=== PATIENT | male | born 1990 | race Asian ===

== ENCOUNTER 2016-09-24 16:22 | Emergency (ER) | payer BC ==
[~2016-09-24] VITALS: Ht 175.3 cm; Wt 216.8 kg
[2016-09-24 16:30] VITALS: BP 114/58
--- NOTE | 2016-09-24 20:50 | ED.ADGEN ---
Past Medical History Past Medical History: No Pertinent History, Diabetes-Type II, Hypertension Past Surgical History: No Surgical History Alcohol Use: None Drug Use: None Adult General Chief Complaint Chief Complaint: DIZZY/LIGHT HEADED HPI HPI Patient is a 26 year old with history of hypertension, adult-onset diabetes and high BMI presents with intermittent dizziness 10 days. Patient reports feeling occasional balance with standing the past 10 days. He denies headache, blurred vision, tinnitus, neck pain, stiffness, extremity tingling or weakness. Toes are described as mild. Patient is currently asymptomatic in the ED. Patient is currently noncompliant with blood pressure diabetic medications. He states he feels as though he doesn't need them and that he is in the process of losing weight. Reports mild nasal congestion rhinorrhea. No cough fever chills, nausea vomiting or sweats. No other acute symptoms or complaints. Patient has not been evaluated for these medical symptoms by his primary care physician prior to ED evaluation. Review of Systems Review of Systems ROS as per HPI. Allergies Allergies Allergies Coded Allergies Type Severity Reaction Last Updated Verified No Known Drug Allergies 09/07/14 No Physical Exam Physical Exam Constitutional: Well developed, well nourished, no acute distress, non-toxic appearance. HENT: Normocephalic, atraumatic, bilateral external ears normal, oropharynx moist, no oral exudates, nose, clear rhinorrhea with mucosa erythema. No facial tenderness to palpation. Eyes: PERRL, EOMI, no nystagmus. Neck: Normal range of motion, no tenderness. Cardiovascular:Heart rate regular rhythm. Lungs & Thorax: Bilateral breath sounds clear to auscultation. Abdomen: Bowel sounds normal, soft, obesity compromising evaluation. Skin: Warm, dry. Extremities: No tenderness. Neurologic: Alert and oriented X 3, cranial nerves II through XII grossly intact , normal motor function, normal sensory function. Psychologic: Affect normal, judgement normal, mood normal. Current Patient Data Vital Signs Vital Signs Date Time Temp Pulse Resp B/P (MAP) Pulse Ox O2 Delivery O2 Flow Rate FiO2 09/24/16 16:30 98.5 85 20 114/58 (76) 99 Room Air 98.5 Lab Values Laboratory Tests Test 09/24/16 16:57 Glucose (Fingerstick) 144 mg/dL (70-99) H EKG EKG [] Radiology/Procedures Radiology/Procedures [] Course & Med Decision Making Course & Med Decision Making Pertinent Labs and Imaging studies reviewed. (See chart for details) [Patient with benign physical exam. Vital signs stable. Sugar 144. Recommend meclizine as needed for dizziness with PCP follow-up for evaluation.] Dragon Disclaimer Dragon Disclaimer This electronic medical record was generated, in whole or in part, using a voice recognition dictation system. BRYN FLANNERY DO Sep 24, 2016 20:50
== END 2016-09-24 17:41 | disposition home or self-care (01) ==
LOC: ER 16:22
DX: R42 Dizziness and giddiness (principal); R09.81 Nasal congestion; J34.89 Other specified disorders of nose and nasal sinuses; E11.9 Type 2 diabetes mellitus without complications; I10 Essential (primary) hypertension
CPT/HCPCS: 82962; 99283

== ENCOUNTER 2016-10-24 10:19 | Emergency (ER) | payer BC ==
[~2016-10-24] VITALS: Ht 175.3 cm; Wt 213.2 kg
[2016-10-24] MEDS ORDERED: IV NORMAL SALINE 1000ML BAG 1,000 ML IV SCH (10:48)
[2016-10-24] MEDS ORDERED: 0.9 % SODIUM CHLORIDE 10 ML DISP.SYRIN. IV PRN (11:00)
[2016-10-24 11:09] LABS: BILIRUBIN,URINE NEGATIVE (NEG); GLUCOSE,URINE >=1000 mg/dL (NEG); NITRITE,URINE NEGATIVE (NEG); PROTEIN,URINE NEGATIVE (NEG-TRACE); UROBILINOGEN,URINE 0.2 mg/dL (0.2 mg/dL)
--- NOTE | 2016-10-24 11:15 | RAD ---
PA and lateral chest. History: Dizzy PA and lateral views were taken of the chest. Lungs are clear. Heart is normal in size without heart failure. There is no effusion. Impression: 1. No acute chest disease.
[2016-10-24 11:26] LABS: BASO # 0.1 x10^3/uL (0.0-0.2); BASO % 1 % (0-3); EOS % 1 % (0-3); HEMATOCRIT 40.4 % (39.0-53.0); HEMOGLOBIN 12.6 g/dL (13.0-17.5); LYMPH # 2.1 x10^3/uL (1.0-4.8); LYMPH % 15 % (24-48); MEAN CORPUSCULAR HEMOGLOBIN 20 pg (25-35); MEAN CORPUSCULAR HGB CONC 31 g/dL (31-37); MEAN CORPUSCULAR VOLUME 64 fL (79-100); MONO % 6 % (0-9); NEUT % 77 % (31-73); PLATELET COUNT 257 x10^3/uL (140-400); WHITE BLOOD COUNT 14.4 x10^3/uL (4.0-11.0)
[2016-10-24 11:31] LABS: BACTERIA,URINE 0 /HPF (0-FEW); SQUAMOUS EPITHELIAL CELL,UR FEW /LPF
--- NOTE | 2016-10-24 11:34 | PHYS DOC ---
Past Medical History Past Medical History: No Pertinent History, Diabetes-Type II, Hypertension Past Surgical History: No Surgical History Alcohol Use: None Drug Use: None Adult General Chief Complaint Chief Complaint: DIZZY/LIGHT HEADED HPI HPI This is a pleasant obese 26-year-old male with history of hypertension, hyperlipidemia, and diabetes who presents with a week long history of dizziness. He is been on multiple medications to include ; hydrochlorothiazide, amlodipine, fargixa, and jaunvia which was added to his treatment plan we can have ago. He began having symptoms about a week ago after starting these medications in an attempt to improve his glucose metabolism. Patient has had increased frequency of urination with urgency and mild dysuria without penile discharge. He's got no abdominal pain, no nausea, no vomiting, no diarrhea, no fevers, no chills, no focal neurologic deficits. He said he feels dizzy going from a sitting to standing position quickly. He knows the symptoms are coming on but there is no change in vision no blurred vision no hearing loss no tinnitus. He also has a slight throbbing tension-like headache has been intermittent for last several weeks. Is not worse of life and sudden onset not exacerbated by exercise or other movements. He denies any fevers, chills or neck stiffness. 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 Review of Systems Review of Systems Constitutional: Denies fever or chills [] Eyes: Denies change in visual acuity, redness, or eye pain [] HENT: Denies nasal congestion or sore throat [] Respiratory: Denies cough or shortness of breath [] Cardiovascular: No additional information not addressed in HPI [] GI: Denies abdominal pain, nausea, vomiting, bloody stools or diarrhea [] : Denies dysuria or hematuria [] Musculoskeletal: Denies back pain or joint pain [] Integument: Denies rash or skin lesions [] Neurologic: Denies headache, focal weakness or sensory changes patient only complains of dizziness with standing from a sitting position. Endocrine: Denies polyuria or polydipsia [] Current Medications Current Medications Current Medications Medications (Trade) Dose Ordered Sig/Gaby Start Time Stop Time Status Last Admin Dose Admin Sodium Chloride (Normal Saline Flush) 10 ml QSHIFT PRN 10/24/16 11:00 10/24/16 11:22 10 ML Allergies Allergies Allergies Coded Allergies Type Severity Reaction Last Updated Verified No Known Drug Allergies 09/07/14 No Physical Exam Physical Exam Constitutional: Well developed, well nourished, no acute distress, non-toxic appearance. Patient is morbidly obese but in no acute distress. HENT: Normocephalic, atraumatic, bilateral external ears normal, dry mucous membranes., no oral exudates, nose normal. [] Eyes: PERRLA, EOMI, conjunctiva normal, no discharge. [] Neck: Normal range of motion, no tenderness, supple, no stridor. [] Cardiovascular:Heart rate regular rhythm, no murmur [] Lungs & Thorax: Bilateral breath sounds clear to auscultation [] Abdomen: Bowel sounds normal, soft, no tenderness, no masses, no pulsatile masses. [] Skin: Warm, dry, no erythema, no rash. [] Back: No tenderness, no CVA tenderness. [] Extremities: No tenderness, no cyanosis, no clubbing, ROM intact, no edema. [] Neurologic: Alert and oriented X 3, normal motor function, normal sensory function, no focal deficits noted. [] Psychologic: Affect normal, judgement normal, mood normal. [] Current Patient Data Vital Signs Vital Signs Date Time Temp Pulse Resp B/P (MAP) Pulse Ox O2 Delivery O2 Flow Rate FiO2 10/24/16 10:55 98.3 95 18 132/60 (84) 97 Room Air 98.3 Lab Values Laboratory Tests Test 10/24/16 10:45 10/24/16 11:15 Urine Collection Type Void Urine Color Yellow Urine Clarity Clear Urine pH 6.0 Urine Specific [place] 1.025 Urine Protein Negative mg/dL (NEG-TRACE) Urine Glucose (UA) >=1000 mg/dL (NEG) Urine Ketones (Stick) Negative mg/dL (NEG) Urine Blood Small (NEG) Urine Nitrite Negative (NEG) Urine Bilirubin Negative (NEG) Urine Urobilinogen Dipstick 0.2 mg/dL (0.2 mg/dL) Urine Leukocyte Esterase Negative (NEG) Urine RBC 11-20 /HPF (0-2) Urine WBC 1-4 /HPF (0-4) Urine Squamous Epithelial Cells Few /LPF Urine Bacteria 0 /HPF (0-FEW) White Blood Count 14.4 x10^3/uL (4.0-11.0) H Red Blood Count 6.30 x10^6/uL (4.30-5.70) H Hemoglobin 12.6 g/dL (13.0-17.5) L Hematocrit 40.4 % (39.0-53.0) Mean Corpuscular Volume 64 fL (79-100) L Mean Corpuscular Hemoglobin 20 pg (25-35) L Mean Corpuscular Hemoglobin Concent 31 g/dL (31-37) Red Cell Distribution Width 15.0 % (11.5-14.5) H Platelet Count 257 x10^3/uL (140-400) Neutrophils (%) (Auto) 77 % (31-73) H Lymphocytes (%) (Auto) 15 % (24-48) L Monocytes (%) (Auto) 6 % (0-9) Eosinophils (%) (Auto) 1 % (0-3) Basophils (%) (Auto) 1 % (0-3) Neutrophils # (Auto) 11.1 x10^3uL (1.8-7.7) H Lymphocytes # (Auto) 2.1 x10^3/uL (1.0-4.8) Monocytes # (Auto) 0.9 x10^3/uL (0.0-1.1) Eosinophils # (Auto) 0.2 x10^3/uL (0.0-0.7) Basophils # (Auto) 0.1 x10^3/uL (0.0-0.2) Platelet Estimate Pending Sodium Level 141 mmol/L (136-145) Potassium Level 3.9 mmol/L (3.5-5.1) Chloride Level 102 mmol/L (98-107) Carbon Dioxide Level 31 mmol/L (21-32) Anion Gap 8 (6-14) Blood Urea Nitrogen 12 mg/dL (8-26) Creatinine 1.0 mg/dL (0.7-1.3) Estimated GFR (Cockcroft-Gault) 89.0 Glucose Level 178 mg/dL (70-99) H Calcium Level 9.2 mg/dL (8.5-10.1) Total Bilirubin 0.2 mg/dL (0.2-1.0) Direct Bilirubin 0.1 mg/dL (0.0-0.2) Aspartate Amino Transferase (AST) 20 U/L (15-37) Alanine Aminotransferase (ALT) 32 U/L (16-63) Alkaline Phosphatase 99 U/L (46-116) Troponin I Quantitative < 0.017 ng/mL (0.000-0.055) ZT-Rxo-Z-Type Natriuretic Peptide 14 pg/mL (0-124) Total Protein 8.0 g/dL (6.4-8.2) Albumin 3.4 g/dL (3.4-5.0) Thyroid Stimulating Hormone (TSH) 1.608 uIU/mL (0.358-3.74) Laboratory Tests 10/24/16 11:15 Laboratory Tests 10/24/16 11:15 EKG EKG [] EKG timed 10:56 AM [id number] Alamonormal sinus rhythm with a heart rate of 89. Normal normal at 168 QRS normal at 108 QTC normal at 454 normal sinus rhythm with no specific ST segment or T-wave changes. Radiology/Procedures Radiology/Procedures [] [facility] [address] [place], [place] [id number] IMAGING REPORT Signed PATIENT: ANDREZ WILKS ACCOUNT: [id number] : 1990 LOCATION: ER AGE: 26 SEX: M EXAM STATUS: REG ER ORD. PHYSICIAN: KATHRYN ALAMO MD REASON: dizzy PROCEDURE: CHEST PA & LATERAL PA and lateral chest. History: Dizzy PA and lateral views were taken of the chest. Lungs are clear. Heart is normal in size without heart failure. There is no effusion. Impression: 1. No acute chest disease. DICTATED and SIGNED BY: FABIAN PARDO MD DATE: 10/24/16 1112 CC: JULIANE OWUSU; KATHRYN ALAMO MD ~ Course & Med Decision Making Course & Med Decision Making Pertinent Labs and Imaging studies reviewed. (See chart for details) he is presently on FARGIXA and Januvia for his diabetes. My concern is that the Januvia which increases beta islet cells within the pancreas to increase insulin production. peak time to effect is 4 hours, half life is 12 hours. It does increased interact synergistically to in cause increased rates of hypoglycemia. [employer] note: [employer] called at of the service Poison Control Consult called back at 11:25 Discussed the case I presented and they agreed with monitoring but no need to start antidote like ocetrotide. She recommended taking him off Januvia and have him follow up on Tuesday. [][employer] note: Poison control [employer] called at of the service they called initially at 12:05 PM Consult called back at 4 5 PM Discussed the case I presented and they agreed with long-term disposition to primary care doctor's office after stopping the Januvia. I discussed at length with the family my concerns of episodes of hypoglycemia causing this patient's dizziness. There is also case reports of UTIs being caused secondary to the medications he is presently on. Given the fact that he has white blood cells in his urine although there is no bacteria or other signs of inflammation I will treat the patient empirically with him on a course to treat the UTI. There is no evidence of hypoglycemic today patient is a symptomatically as we speak. I believe that the increased frequency may be associated with the increased osmotic pressure of glucose in his bloodstream. There is no signs of DKA or hyper ketotic coma. Patient is heparinized him today with only a level of 173 with a normal BUN/creatinine are normal CBC, negative troponin, negative EKG, negative chest x-ray, negative proBNP. Impression: Transient hypoglycemia and dehydration secondary to medication interaction, possible UTI based on medication interaction. Near-syncope. Disposition: PCP follow-up tomorrow the next day with taking him off his Januvia. We will treat him with a course of antibiotics for his suspected UTI and close monitoring his glucose levels. Dragon Disclaimer Dragon Disclaimer This electronic medical record was generated, in whole or in part, using a voice recognition dictation system. Departure Departure Impression: Primary Impression: Dizziness Additional Impressions: UTI (urinary tract infection) Hyperglycemia Medication taken as treatment for adverse drug reaction Disposition: HOME, SELF-CARE Condition: IMPROVED Referrals: JULIANE OWUSU (PCP) Patient Instructions: Hyperglycemia, Near-Syncope, Urinary Tract Infection Additional Instructions: Please stop the Januvia immediately, please follow-up with your primary care doctor in the next 24-48 hours. I would like to discuss with her primary care doctor the interaction between these 2 medications and why it may be unsafe and may cause hypoglycemia and your symptoms because sugars sugars are not well controlled. Please return for any new focal neurologic deficits, increasing headache, changes in vision, as proms speaking or feel any question concerns. Problem Qualifiers KATHRYN ALAMO MD Oct 24, 2016 11:34
[2016-10-24 11:35] LABS: CALCIUM 9.2 mg/dL (8.5-10.1); POTASSIUM 3.9 mmol/L (3.5-5.1)
[2016-10-24 11:52] LABS: ALBUMIN 3.4 g/dL (3.4-5.0); DIRECT BILIRUBIN 0.1 mg/dL (0.0-0.2); TOTAL BILIRUBIN 0.2 mg/dL (0.2-1.0)
--- NOTE | 2016-10-24 12:09 | EKG ---
[facility] [address] [place] [address] Test Date: 2016-10-24 Test Time: 10:56:39 Pat Name: ANDREZ WILKS Department: Room: Gender: [employer]: : 1990 Requested By: KATHRYN ALAMO Order Number: [id number] Reading MD: Measurements Intervals [place] Rate: 89 P: 42 RI: 168 QRS: 63 QRSD: 108 T: 11 QT: 372 QTc: 454 Interpretive Statements SINUS RHYTHM NO SPECIFIC ECG ABNORMALITIES RI6.01 No previous ECG available for comparison
[2016-10-24 12:14] VITALS: BP 118/56
[2016-10-24] MEDS ORDERED: CIPR500T94 PO (12:32)
[2016-10-24 12:57] LABS: ANISOCYTOSIS SLIGHT; HYPOCHROMIA PRESENT; MICROCYTOSIS PRESENT; PLT ESTIMATE ADEQUATE (ADEQUATE)
== END 2016-10-24 12:34 | disposition home or self-care (01) ==
LOC: ER 10:19
DX: R42 Dizziness and giddiness (principal); N39.0 Urinary tract infection, site not specified; E11.65 Type 2 diabetes mellitus with hyperglycemia; T38.3X5A Adverse effect of insulin and oral hypoglycemic [antidiabetic] drugs, initial encounter; I10 Essential (primary) hypertension; E78.5 Hyperlipidemia, unspecified; R51 Headache; E66.01 Morbid (severe) obesity due to excess calories; Z68.44 Body mass index [BMI] 60.0-69.9, adult; Z79.84 Long term (current) use of oral hypoglycemic drugs; Z79.899 Other long term (current) drug therapy; Y92.89 Other specified places as the place of occurrence of the external cause
CPT/HCPCS: 36415; 71020; 80048; 80076; 81001; 83880; 84443; 84484; 85007; 85027; 93005; 96360; 99285; J7030